=== PATIENT | male | born 1955 | race American Indian/Alaskan Native ===

== ENCOUNTER 2018-03-31 07:56 | Emergency (ER) | payer OTHER ==
[2018-03-31 08:05] VITALS: BMI 29.7
[2018-03-31 09:00] VITALS: RESP 18; TEMP 98.2
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
[2018-03-31 09:32] LABS: BASO # 0.01 K/mm3 (0.0-2.0); BASO % 0.2 % (0.0-3.0); EOS # 0.1 (0.0-0.7); EOS % 1.1 % (1.5-5.0); GRAN # 4.26 (1.4-6.5); GRAN % 66.9 % (50.0-68.0); HEMOGLOBIN 11.6 g/dL (14.0-18.0); LYMPH # 1.7 (1.2-3.4); LYMPH % 27.4 % (22.0-35.0); MEAN CELL VOLUME 89.9 fl (80.0-105.0); MEAN CORPUSCULAR HEMOGLOBIN 30.1 pg (25.0-35.0); MEAN CORPUSCULAR HGB CONC 33.4 g/dl (31.0-37.0); MEAN PLATELET VOLUME 11.1 fl (7.0-11.0); MONO # 0.3 (0.1-0.6); MONO % 4.4 % (1.0-6.0); RBC 3.86 10^6/uL (3.5-6.1); RED CELL DISTRIBUTION WIDTH 14.4 % (11.5-14.5); WHITE BLOOD COUNT 6.4 10^3/ul (4.5-11.0)
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
[2018-03-31 09:39] LABS: ALB/GLOB RATIO 1.1 (1.1-1.8); ALBUMIN 3.8 g/dL (3.0-4.8); ALT/SGPT 43 U/L (7-56); AST/SGOT 30 U/L (17-59); BLOOD UREA NITROGEN 14 mg/dL (7-21); CALCIUM 8.8 mg/dL (8.4-10.5); GFR AFRICAN-AMERICAN > 60; GFR NON-AFRICAN AMERICAN > 60; LIPASE 94 U/L (23-300)
[2018-03-31 09:52] LABS: INR 0.98 (0.93-1.08); PARTIAL THROMBOPLASTIN TIME 27.3 Seconds (25.1-36.5); PROTHROMBIN TIME 11.3 SECONDS (9.4-12.5)
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
[2018-03-31] MEDS ORDERED: TDAP Vaccine 0.5 mL Syr IM ONE (11:32)
[2018-03-31 11:44] VITALS: BP 140/92; PULSE 72; O2SAT 98
== END 2018-03-31 11:44 | disposition home or self-care (01) ==
LOC: ED 07:56
DX: S40.212A Abrasion of left shoulder, initial encounter (principal); S50.312A Abrasion of left elbow, initial encounter; S80.212A Abrasion, left knee, initial encounter; W17.89XA Other fall from one level to another, initial encounter; Y92.89 Other specified places as the place of occurrence of the external cause; Z23 Encounter for immunization
CPT/HCPCS: 71045; 74177; 80053; 83036; 83690; 83735; 85025; 85610; 85730; 90471; 90715; 99284; Q9967